=== PATIENT | female | born 1940 | race Caucasian/White ===

== ENCOUNTER → 2020-02-24 09:06 | Outpatient (CLI) | payer MEDICARE, SELFPAY ==
[2020-02-24 10:16] LABS: Add Manual Diff / Slide Review NO; Basophils Absolute Auto 0 /uL (0-100); Basophils Percent Auto 0.9 % (0-2); Eosinophils Absolute Auto 100 /uL (0-450); Eosinophils Percent Auto 1.4 % (2-4); Hemoglobin 13.3 g/dL (12.0-16.0); Lymphocytes Absolute Auto 700 /uL (1100-4500); Lymphocytes Percent Auto 16.7 % (25-40); Mean Corpuscular HGB Conc 33.2 % (30-36); Mean Corpuscular Hemoglobin 31.7 PG (26-34); Mean Corpuscular Volume 95.7 fL (80-100); Monocytes Absolute Auto 400 /uL (0-900); Monocytes Percent Auto 8.8 % (3-14); Neutrophils Absolute Auto 3200 /uL (1500-7000); Neutrophils Percent Auto 72.2 % (50-75); Platelet Count 151 X10^3/uL (150-400); Red Blood Cell Count 4.18 X10^6/uL (4.0-5.2); Red Cell Distribution Width 13.1 % (11.6-14.8); White Blood Cell Count 4.5 X10^3/uL (4.5-11.0)
[2020-02-24 10:40] LABS: Alanine Aminotransferase 20 IU/L (<35); Albumin 4.1 g/dL (3.5-5.0); Albumin Globulin Ratio 1.5 (1.0-2.8); Alkaline Phosphatase 124 U/L (38-126); Aspartate Aminotransferase 30 IU/L (14-36); BUN Creatinine Ratio 28.3 (6-22); Bilirubin Total 0.7 mg/dL (0.2-1.3); Blood Urea Nitrogen 17 mg/dL (7-17); Calcium 9.4 mg/dL (8.4-10.2); Carbon Dioxide 31 mmol/L (22-32); Chloride 101 mmol/L (98-107); Cholesterol 179 mg/dL (140-199); Estimated Glomerular Filt Rate > 60.0 mL/min (>60); Globulin 2.8 g/dL (1.7-4.1); Glucose 120 mg/dL (80-110); HDL Cholesterol 33 mg/dL (40-60); HEMOLYSIS < 15 (0-50); LDL Cholesterol Calculated 121 mg/dL (<100); Lipase 172 U/L (23-300); Potassium 3.8 mmol/L (3.4-5.1); Sodium 137 mmol/L (137-145); Total Protein 6.9 g/dL (6.3-8.2); Triglycerides 124 mg/dL (35-150)
[2020-02-24 10:49] LABS: C-Reactive Protein Quant < 0.5 mg/dL (<1.0)
[2020-02-24 11:17] LABS: TSH w/ Reflex to FT4 1.21 uIU/mL (0.47-4.68)
== END ==
PROVIDERS: Referring Provider Student in an Organized Health Care Education/Training Program; Visit Provider Student in an Organized Health Care Education/Training Program
DX: Z00.00 Encounter for general adult medical examination without abnormal findings (principal); E78.00 Pure hypercholesterolemia, unspecified; I10 Essential (primary) hypertension; R10.30 Lower abdominal pain, unspecified; M17.0 Bilateral primary osteoarthritis of knee
CPT/HCPCS: 36415; 80053; 80061; 83690; 84443; 85025; 86140

== ENCOUNTER → 2020-03-01 12:48 | Outpatient (CLI) | payer MEDICARE, SELFPAY ==
--- NOTE | 2020-03-01 | DI.CT.S_ITS ---
PROCEDURE: CT ABDOMEN PELVIS W CON INDICATIONS: Abdominal pain; Unspecified menopausal TECHNIQUE: After the administration of oral and intravenous contrast, 5 mm thick sections acquired from the diaphragms to the symphysis. 5 mm thick coronal and sagittal reformats were performed. For radiation dose reduction, the following was used: automated exposure control, adjustment of mA and/or kV according to patient size. COMPARISON: [facility], CR, XR DEXA AXIAL SKELETON, 03/01/2020, 12:58. FINDINGS: Image quality: Excellent. ABDOMEN: Lung bases: Lung bases are clear. Heart size is normal. Solid organs: Liver is normal in size and is generally normal in enhancement but multiple hypoenhancing solid masses are present ranging in size from several mm to several cm consistent with multifocal hepatic metastatic disease. The largest lesion is within the left hepatic lobe, measuring up to approximately 4 cm.. Gallbladder appears normal . Biliary system is non-dilated. Spleen is normal in size and enhancement. No adrenal nodules. Kidneys are normal in size and enhancement, without hydronephrosis. The pancreatic head and uncinate process enhance normally, as does the pancreatic neck. Immediately beyond, however, involving the pancreatic body and contiguously extending to infiltrate through the pancreatic tail is a malignant-appearing mass that encases individual arteries and veins leading to the spleen, and also at the retroperitoneum including the celiac axis and superior mesenteric artery, left greater than right. Additional infiltrative tumor extends into the aortocaval space and left periaortic retroperitoneum. This infiltration low reduces as the distal aorta is approached. Peritoneum and bowel: Stomach, small bowel, and colon loops are normal in caliber and wall thickness. No free fluid or air. Nodes and vessels: No retroperitoneal or mesenteric adenopathy. Aorta and inferior vena cava are normal in caliber. Miscellaneous: No ventral hernias. PELVIS: Genitourinary: Bladder wall thickness is normal. Miscellaneous: No inguinal hernias or adenopathy. A minimal amount of ascites extends into the pelvis. 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 No vertebral body compression fractures. IMPRESSION: Large pancreatic body and tail mass, epicenter at the pancreatic parenchyma, is most consistent with pancreatic primary adenocarcinoma. Tumor infiltrates from this area into adjacent retroperitoneal fat planes, encasing retroperitoneal vasculature as discussed. Additionally there is extensive hepatic metastatic disease without obstructive influence on individual intrahepatic bile ducts at this time. Distant metastatic disease is not seen within the lower chest or deep pelvis. 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 Dictated by: Smith Ann M.D. on 03/01/2020 at 14:40 Approved by: Smith Ann M.D. on 03/01/2020 at 14:49
== END ==
PROVIDERS: PCP Student in an Organized Health Care Education/Training Program; Referring Provider Student in an Organized Health Care Education/Training Program; Visit Provider Student in an Organized Health Care Education/Training Program
DX: C80.1 Malignant (primary) neoplasm, unspecified (principal); C78.7 Secondary malignant neoplasm of liver and intrahepatic bile duct; K86.9 Disease of pancreas, unspecified; M89.9 Disorder of bone, unspecified; R10.9 Unspecified abdominal pain; M85.852 Other specified disorders of bone density and structure, left thigh; Z78.0 Asymptomatic menopausal state
CPT/HCPCS: 74177; 77080

== ENCOUNTER → 2020-09-03 14:47 | Outpatient (CLI) | payer MEDICARE, SELFPAY ==
--- NOTE | 2020-09-03 | DI.ECHO.S_ITS ---
[facility] +---------+ [facility] +---------+ : : [address] : [place] : : : : [id number] : : : : Phone: [phone]+ Echocardiogram Report + + :Name: AMANDEEP MATHIAS Study Date: 09/03/2020 Height: 60 in : :[facility] ReadingLocation: Weight: 118 lb : : Gender: Female BSA: 1.5 m2 : :: 1940 Age: 79 yrs BP: 180/88 mmHg: :Reason For Study: CARDIAC MURMUR : :Ordering Physician: JENNIFER, : :ASHWINI Performed By: Sanjuanita Ely : :Referring: JCARLOS DICKSON : + + Interpretation Summary The ejection fraction is estimated to be 60-65%. There is mild mitral regurgitation. There is mild to moderate aortic regurgitation. There is mild tricuspid regurgitation. The ascending aorta is mildly enlarged. Procedure: A two-dimensional transthoracic echocardiogram with color flow and Doppler was performed. The study quality was technically adequate. There is no prior echocardiogram noted for this patient. The heart rate ranged between 66-86 bpm during the study. Left Ventricle: The left ventricle is normal in size. There is mild concentric left ventricular hypertrophy. Left ventricular global longitudinal strain average is -21.3%. The ejection fraction is estimated to be 60-65%. There is a mild dyssynchronous contraction pattern, consistent with a conduction abnormality. Right Ventricle: The right ventricle is normal in size and function. Atria: The left atrium is severely dilated. Right atrial size is normal. There is no Doppler evidence for an interatrial shunt. Mitral Valve: The mitral valve leaflets appear mildly thickened, but open well. There is mild mitral annular calcification. There is mild mitral regurgitation. Aortic Valve: The aortic valve is trileaflet. The aortic valve opens well. There is no aortic valve stenosis. There is mild to moderate aortic regurgitation. Tricuspid Valve: The tricuspid valve is normal in structure and function. There is mild tricuspid regurgitation. Pulmonic Valve: The pulmonic valve leaflets are thin and pliable; valve motion is normal. There is trace pulmonic regurgitation. Great Vessels: The aortic root is normal size. The ascending aorta is mildly enlarged. The IVC is of normal diameter and collapses greater than 50% with a sniff. This suggests a low right atrial pressure of 3 mm Hg. Pericardium/ Pleura There is no pericardial effusion. There is no pleural effusion. MMode/2D Measurements & Calculations LVIDd: 4.3 cm LVOT diam: 2.0 cm LVIDs: 3.2 cm Ao root diam: 3.3 cm FS: 27.3 % asc Aorta Diam: 3.8 cm EPSS: 1.0 cm Ao Arch Diam (Prox Trans): 2.8 cm IVSd: 1.1 cm LVPWd: 1.1 cm LV oliveira. diameter/BSA (cm/m^2): 2.9 LV sys. diameter/BSA (cm/m^2): 2.1 LA A2 area: 23.2 cm2 RA long axis: 4.8 cm LA A4 area: 25.4 cm2 RA area: 11.8 cm2 LA length (vol): 6.1 cm RA vol: 24.6 ml LA vol: 81.8 ml RA : 16.5 ml/m2 LA vol index: 54.8 ml/m2 IVC diam: 1.0 cm RVD1 (basal): 2.9 cm TAPSE: 2.0 cm Doppler Measurements & Calculations Ao V2 max: 132.3 cm/sec LVOT Max Cooper: 88.9 cm/sec Ao V2 mean: 87.6 cm/sec LV V1 max P.2 mmHg Ao max P.0 mmHg LV V1 VTI: 18.7 cm Ao mean P.5 mmHg JONATHAN(I,D): 2.4 cm2 Ao V2 VTI: 23.7 cm JONATHAN(V,D): 2.0 cm2 sev ratio: 0.79 JONATHAN indexed to BSA (cm^2/m^2): 1.6 MV E max cooper: 40.2 cm/sec TR max cooper: 256.4 cm/sec MV A max cooper: 82.2 cm/sec TR max P.3 mmHg MV E/A: 0.49 PA pr(Accel): 44.7 mmHg Med Peak E' Cooper: 3.0 cm/sec E/E' med: 13.4 Lat Peak E' Cooper: 9.4 cm/sec E/E' lat: 4.3 E/e' average: 8.8 MV dec time: 0.26 sec SV(OT): 56.8 ml Reading Physician:04:43 PM
== END ==
PROVIDERS: PCP Student in an Organized Health Care Education/Training Program; Referring Provider Student in an Organized Health Care Education/Training Program; Visit Provider Student in an Organized Health Care Education/Training Program
DX: I08.3 Combined rheumatic disorders of mitral, aortic and tricuspid valves (principal); I77.89 Other specified disorders of arteries and arterioles; R01.1 Cardiac murmur, unspecified
CPT/HCPCS: 93306